=== PATIENT | male | born 1975 | race Caucasian/White ===

== ENCOUNTER 2022-11-15 13:45 | Emergency (ER) | payer SELFPAY ==
[~2022-11-15] VITALS: Ht 172.7 cm; Wt 73.0 kg
[2022-11-15 13:49] VITALS: BP 168/88; PULSE 92; RESP 16; TEMP 98.2; O2SAT 98
== END 2022-11-15 14:44 | disposition left against medical advice (07) ==
LOC: ER 13:45
DX: Z53.21 Procedure and treatment not carried out due to patient leaving prior to being seen by health care provider (principal)
CPT/HCPCS: 99281